=== PATIENT | female | born 1945 | race Caucasian/White ===

== ENCOUNTER → 2021-03-27 12:09 | Outpatient (CLI) | payer MEDICARE, SELFPAY ==
--- NOTE | ~2021-03-27 | DEXA_ITS ---
Bone Density Report Name: Vannessa Stubbs Age: 75 Sex: Female Ethnicity: White Date of : 1945 Indication: postmenopausal; screening for osteoporosis; Referring Provider: Brando Keita Study: Bone densitometry was performed. Exam Date: March 27, 2021 Accession number: [id number] Bone Density: Region BMD T-score Z-score Classification AP Spine (L1-L4) 0.986 -0.6 1.9 Normal Femoral Neck (Left) 0.780 -0.6 1.5 Normal Total Hip (Left) 0.904 -0.3 1.5 Normal Femoral Neck (Right) 0.778 -0.6 1.5 Normal Total Hip (Right) 0.887 -0.5 1.4 Normal Total Hip Mean 0.896 -0.4 1.5 Normal World Health Organization criteria for BMD impression classify patients as: Normal (T-score at or above -1.0), Osteopenia (T-score between -1.0 and -2.5), or Osteoporosis (T-score at or below -2.5). 10-year Fracture Risk: FRAX not reported because: All T-scores for Spine Total, Hip Total, Femoral Neck at or above -1.0 Clinical Information Provided by Patient: Patient maximum height was 58 Menopause Age: 47 No regular weight bearing exercise Onset of menses at age 13 Number of children 2 Impression: The patient has normal bone mass. Discussion: BONE DENSITY IS ABOVE THE MINIMUM DESIRABLE LEVEL AT ALL SKELETAL SITES TESTED. This patient?s bone mineral density is above the minimum desirable level (T-score -1.0 or better) at all sites measured. The patient should follow a healthful lifestyle (good nutrition with adequate calcium and vitamin D, and appropriate weight-bearing exercise). Follow-Up: Consider repeating this study in 5 years or sooner if there is some new clinical indication. Reported by: SUZIE on 03/27/2021 12:37:00 PM. Reviewed, dictated and finalized at location [facility]
--- NOTE | ~2021-03-27 | MM_ITS ---
EXAMINATION: MM screening james BI w juanita HISTORY: Screening TECHNIQUE: Craniocaudal and mediolateral oblique 3-D tomosynthesis images were obtained and synthetic 2-D images were generated. CAD analysis was submitted and interpreted. COMPARISON: Comparison to multiple prior studies sequentially, with oldest reviewed study dated 01/26. BREAST PARENCHYMAL COMPOSITION: There are scattered areas of fibroglandular density. FINDINGS: There is focal asymmetry laterally in the left breast on CC view. The right breast is stabl e without evidence for malignancy. IMPRESSION: 1. New focal left breast asymmetry laterally on CC view. 2. Additional mammographic views and possible breast ultrasound are recommended. BI-RADS Category 0: Incomplete: Needs additional imaging evaluation. Reviewed, dictated and finalized at location A. IMPRESSION: 1. New focal left breast asymmetry laterally on CC view. 2. Additional mammographic views and possible breast ultrasound are recommended . BI-RADS Category 0: Incomplete: Needs additional imaging evaluation.
== END ==
PROVIDERS: PCP Family Medicine; Visit Provider Family Medicine
DX: Z12.31 Encounter for screening mammogram for malignant neoplasm of breast (principal); Z78.0 Asymptomatic menopausal state; R92.8 Other abnormal and inconclusive findings on diagnostic imaging of breast
CPT/HCPCS: 77063; 77067; 77080

== ENCOUNTER → 2021-04-29 14:27 | Outpatient (CLI) | payer MEDICARE, SELFPAY ==
--- NOTE | ~2021-04-29 | MMUS_ITS ---
EXAMINATION: MM diagnostic james LT w juanita, US breast LT limited HISTORY: New focal asymmetry reported in lateral aspect of left breast on 03/27/2021 screening cc view . TECHNIQUE: Additional 3-D tomosynthesis images of the left breast were performed and synthetic 2-D im ages were generated. CAD analysis was submitted and interpreted. High resolution upper outer and lowe r-outer left breast ultrasound was performed. COMPARISON: 03/27/2021 bilateral digital screening mammogram FINDINGS: MAMMOGRAPHIC FINDINGS: No suspicious mass or architectural distortion is evident. There are scattered benign calcifications. ULTRASOUND: Probable benign 3 mm cyst at 5:00 3 cm from nipple. No suspicious mass or shadowing is detected otherwise in the lateral half of the left breast. IMPRESSION: 1. Probable benign 3 mm cyst at 5:00 3 cm from nipple 2. 6 month diagnostic left mammogram and targeted left breast ultrasound follow-up is recommended BI-RADS category 3, probably benign findings. Reviewed, dictated and finalized at location A. IMPRESSION: 1. Probable benign 3 mm cyst at 5:00 3 cm from nipple 2. 6 month diagnostic left mammogram and targeted left breast ultrasound follow -up is recommended BI-RADS category 3, probably benign findings.
== END ==
PROVIDERS: PCP Family Medicine; Visit Provider Family Medicine
DX: R92.8 Other abnormal and inconclusive findings on diagnostic imaging of breast (principal)
CPT/HCPCS: 76642; 77061; 77065; G0279

== ENCOUNTER → 2022-01-06 14:06 | Outpatient (CLI) | payer MEDICARE, SELFPAY ==
--- NOTE | ~2022-01-06 | MM_ITS ---
EXAMINATION: MM diagnostic james LT w juanita HISTORY: Six-month follow-up for probably benign left breast mass TECHNIQUE: Craniocaudal, mediolateral, and mediolateral oblique 3-D tomosynthesis images of the left breast were performed and synthetic 2-D images were generated. CAD analysis was submitted and interpr eted. COMPARISON: 04/29/2021, 03/27/2021,05/23/2019 BREAST PARENCHYMAL COMPOSITION: There are scattered areas of fibroglandular density. FINDINGS: Scattered benign-appearing calcifications are present. There is no evidence of suspicious mass, calcification, or architectural distortion to suggest malignancy. There has been no suspicious interval change. IMPRESSION: 1. No mammographic evidence of malignancy. 2. Patient will return for targeted ultrasound of the sonographically detected left breast mass in qu estion. BI-RADS Category 0: Incomplete: Needs additional imaging evaluation. Reviewed, dictated and finalized at location A. BUSINESS SYSTEMS ANALYST IMPRESSION: 1. No mammographic evidence of malignancy. 2. Patient will return for targeted ultrasound of the sonographically detected left breast mass in question. BI-RADS Category 0: Incomplete: Needs additional imaging evaluation.
== END ==
PROVIDERS: PCP Family Medicine; Visit Provider Physician Assistant
DX: R92.8 Other abnormal and inconclusive findings on diagnostic imaging of breast (principal)
CPT/HCPCS: 77061; 77065; G0279

== ENCOUNTER → 2022-01-07 14:11 | Outpatient (CLI) | payer MEDICARE, SELFPAY ==
--- NOTE | ~2022-01-07 | US_ITS ---
EXAMINATION: US breast LT limited HISTORY: Six-month follow-up for probably benign left breast mass TECHNIQUE: Limited left breast ultrasound was performed. FINDINGS: The previously described sonographically detected left breast mass is no longer identified. No suspicious cystic or solid mass is seen. IMPRESSION: Interval resolution of the previously described left breast mass. Routine screening mammography is re commended. BI-RADS Category 1: Negative Reviewed, dictated and finalized at location A. OTICS AND/OR VICE DETECTIVE IMPRESSION: Interval resolution of the previously described left breast mass. Routine [place] mammography is recommended. BI-RADS Category 1: Negative
== END ==
PROVIDERS: PCP Physician Assistant; Visit Provider Physician Assistant
DX: R92.8 Other abnormal and inconclusive findings on diagnostic imaging of breast (principal)
CPT/HCPCS: 76642

== ENCOUNTER 2022-03-31 15:51 | Emergency (ER) | payer MEDICARE, SELFPAY ==
--- NOTE | ~2022-03-31 | XR_ITS ---
EXAMINATION: XR hand RT min 3V DATE: 03/31/2022 16:39 INDICATION: Cat bite 2 days prior with erythema and swelling posterior to the second and third metaca rpals TECHNIQUE: Posteroanterior, oblique and lateral views of the right hand were obtained. COMPARISON: None. FINDINGS: Widening of the scapholunate interval suggestive of tear of the scapholunate ligament. Severe osteoar thritis with some likely chronic dorsal subluxation at the first carpometacarpal joint with remodelin g of the base of the first metacarpal. Alignment is otherwise normal. No fractures identified. No cor tical erosions or periosteal reaction to suggest osteomyelitis. Additional polyarticular osteoarthrit is, severe at the second and fifth distal interphalangeal joints moderate at the triscaphe joint, rem aining interphalangeal joints and at the third-fifth metacarpophalangeal joints and mild at the first and second metacarpophalangeal, midcarpal and wrist joints. There appears be periarticular soft tiss ue swelling at the second and third metacarpophalangeal joints. No radiopaque foreign bodies. IMPRESSION: 1. 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 No acute osseous abnormality. Reviewed, dictated and finalized at location B. IMPRESSION: 1. 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 No a cute osseous abnormality.
[2022-03-31 15:55] VITALS: BP 151/64; PULSE 84; RESP 16; TEMP 36.9; O2SAT 100
--- NOTE | 2022-03-31 16:14 | ED.ANIMALBIT ---
HPI - Animal Bite General Chief Complaint: Animal Bite Stated Complaint: Animal bite Time Seen by Provider: 03/31/22 16:06 History of Present Illness HPI narrative: 76-year-old female presents to the emergency room complaints cat bite to the right hand. Patient states that she was brushing the cat when cat became agitated and bit her on the right hand. Patient states the bite occurred on Thursday. Patient also reports the area around the bite is becoming more tender and red. Patient denies fever. Patient states the rabies vaccination status of the cat is up-to-date. Related Data Home Medications Medication Instructions Recorded Confirmed acetaminophen 500 mg capsule 1,000 mg PO TID PRN cap 12/26/19 10/24/21 ferrous sulfate 325 mg (65 mg 325 mg PO DAILY 12/26/19 10/24/21 iron) tablet Allergies Allergy/AdvReac Type Severity Reaction Status Date / Time codeine Allergy Unknown Skin Verified 03/31/22 16:17 Reaction Review of Systems Review of Systems: CONSTITUTIONAL: Denies fever, chills, or sweats. EYES: Denies visual changes, redness, or discharge. ENT: Denies rhinorrhea, congestion, sore throat, or otalgia. CARDIOVASCULAR: Denies chest pain, palpitations, or edema. RESPIRATORY: Denies cough or dyspnea. GASTROINTESTINAL: Denies abdominal pain, nausea, vomiting, or diarrhea. GENITOURINARY: Denies dysuria or hematuria. SKIN: 2 puncture wounds to right hand MUSCULOSKELETAL: Denies back pain, joint pain, or myalgia. NEUROLOGIC: Denies headache, numbness, dizziness, or weakness. PSYCHIATRIC: Denies anxiety or depression. PMFSH Surgical History Surgical History History of knee replacement Family History Family History Mother Family history of malignant neoplasm of brain, Onset Age: 70 Father Family history of coronary artery disease, Onset Age: 70 Social History Social History Smoking status: Former smoker Second hand tobacco smoke exposure: No Alcohol intake: never Exam Narrative: GENERAL: Well-appearing, well-nourished, and in no acute distress. HEAD: Normocephalic, atraumatic. EYES: PERRLA and EOMI. ENT: Nares clear, no rhinorrhea or epistaxis. Mucous membranes moist. Oropharynx without tonsillar hypertrophy exudate or other lesions. Bilateral TMs pearly ordoñez nonbulging NECK: Supple. No adenopathy or masses. No carotid bruits or JVD CHEST: Clear to auscultation. No respiratory distress. No wheezes rales or rhonchi HEART: Regular rate and rhythm. No murmur heard. Normal peripheral pulses. ABDOMEN: Soft, nontender, nondistended, normal active bowel sounds. EXTREMITIES: Normal range of motion. No edema. SKIN: Right hand: 2 puncture wounds with surrounding erythema to dorsal surface; no drainage, no streaking, FROM NEURO: No focal deficits. Alert and oriented x3. PSYCH: Normal mood and affect. Course Vital Signs Vital signs: Vital Signs Temperature 36.9 C 03/31/22 15:55 Pulse Rate 84 03/31/22 15:55 Respiratory Rate 16 03/31/22 15:55 Blood Pressure 151/64 H 03/31/22 15:55 Pulse Oximetry 100 03/31/22 15:55 Temperature 36.9 C 03/31/22 15:55 Pulse Rate 84 03/31/22 15:55 Respiratory Rate 16 03/31/22 15:55 Blood Pressure 151/64 H 03/31/22 15:55 Pulse Oximetry 100 03/31/22 15:55 Discharge Plan Discharge Clinical Impression: Bite by animal Patient Disposition: Home, Self-Care Condition: Stable Instructions: Antibiotic Form, Animal Bite (ED) Prescriptions: New amoxicillin-pot clavulanate 875-125 mg tablet 1 tablet PO Q12H 10 Days Qty: 20 RF: 0 No Action ferrous sulfate [Feosol] 325 mg (65 mg iron) tablet 325 mg PO DAILY RF: 0 acetaminophen 500 mg capsule 1,000 mg PO TID PRNRF: 0 pantoprazole 40 mg tablet,delayed release (DR/EC)
[2022-03-31] MEDS: TETANUS,DIPHTHERIA,AC PERTUSSIS ADULT (0.5 ML) BOOSTRIX IM (16:47)
== END 2022-03-31 16:55 | disposition home or self-care (01) ==
PROVIDERS: Emergency Provider Nurse Practitioner Family; PCP Family Medicine
DX: S61.451A Open bite of right hand, initial encounter (principal); Z23 Encounter for immunization; Z96.659 Presence of unspecified artificial knee joint; Z87.891 Personal history of nicotine dependence; W55.01XA Bitten by cat, initial encounter
CPT/HCPCS: 73130; 90471; 90715; 99283

== ENCOUNTER 2023-08-21 13:41 | Emergency (ER) | payer MEDICARE, SELFPAY ==
--- NOTE | ~2023-08-21 | XR_ITS ---
EXAMINATION: XR shoulder LT min 2V DATE: 08/21/2023 15:05 INDICATION: Left shoulder pain. TECHNIQUE: 4 views of left shoulder were obtained. COMPARISON: None. FINDINGS: Bone alignment is normal. No fracture. There is mild osteoarthritis of glenohumeral joint a nd acromioclavicular joint. IMPRESSION: 1. Mild polyarticular osteoarthritis. Reviewed, dictated and finalized at location A.
--- NOTE | 2023-08-21 13:44 | ECG_ITS ---
Measurements Intervals [place] Rate: 91 P: 51 TX: 146 QRS: 37 QRSD: 85 T: 57 QT: 372 QTc: 458 Interpretive Statements SINUS RHYTHM NONSPECIFIC ST & T-WAVE ABNORMALITY ABNORMAL ECG NO PREVIOUS ECG AVAILABLE FOR COMPARISON Electronically Signed On 08-21-2023 14:10:05 CDT by Madhu Barrientos M.D.
[2023-08-21 14:17] VITALS: BP 181/90; PULSE 88; RESP 16; TEMP 37; O2SAT 99
[2023-08-21 18:15] VITALS: BP 168/79; PULSE 88; O2SAT 100
--- NOTE | 2023-08-21 18:29 | ED.UPPEXIN ---
HPI - Extremity Injury (Upper) General Chief Complaint: Extremity Injury, Upper Stated Complaint: left shoulder pain worse with movement Time Seen by Provider: 08/21/23 18:28 Source: patient and family Mode of arrival: ambulatory Limitations: no limitations History of Present Illness HPI narrative: 78 years old white female came to the emergency room with left shoulder pain after lifting a lot of heavy stuff including wheelchair out of the basement to upstairs yesterday. She denies any chest pain or shortness of breath. Worse with any left upper extremity movement, better remaining still. Patient cannot lift left upper extremity above her head. Related Data Home Medications Medication Instructions Recorded Confirmed acetaminophen 500 mg capsule 1,000 mg PO TID PRN Pain 12/26/19 08/21/23 ferrous sulfate 325 mg (65 mg 325 mg PO DAILY 12/26/19 08/21/23 iron) tablet (Feosol) Allergies Allergy/AdvReac Type Severity Reaction Status Date / Time codeine Allergy Unknown Skin Verified 08/21/23 18:19 Reaction Review of Systems Review of Systems: All systems reviewed & are unremarkable except as noted in HPI and below PMFSH Surgical History Surgical History H/O dilation and curettage History of knee replacement History of tonsillectomy Family History Family History Mother Family history of malignant neoplasm of brain, Onset Age: 70 Father Family history of coronary artery disease, Onset Age: 70 Social History Social History Smoking status: Former smoker Second hand tobacco smoke exposure: No Alcohol intake: never Substance use type: does not use Lack of Transportation: No Lack of Food: Never True Current Housing: I Have Housing Concerned About Future Housing: No Difficulty Paying Gas/Electric Bills: No Difficulty Paying for Meds: No Currently Unemployed: No Education: High School Diploma/GED Living arrangements: with family Additional living arrangements comments: Exam Narrative: General appearance: Well-developed, well-nourished Skin: Normal color Head: Normocephalic, nontraumatic Eyes: Clear conjunctiva ENT: Oropharynx normal, ears normal, nose normal Neck: Supple, nontender Chest and respiratory: Airway patent, no respiratory distress, no accessory muscle use Heart: Regular rate/rhythm Abdomen: Soft, nontender, no organomegaly, quiet bowel sounds Vascular: Normal peripheral pulses, normal capillary refill. Musculoskeletal: Diffuse tenderness left shoulder, no bruises, no swelling, no rash, no deformity, severe limited range of motion, patient cannot do abduction more than 75 degree. Neurologic: Alert and oriented ?3, FORM [employer] FORMS is normal as tested, no gross motor deficit Course Vital Signs Vital signs: Vital Signs Temperature 37.0 C 08/21/23 14:17 Pulse Rate 88 08/21/23 14:17 Respiratory Rate 16 08/21/23 14:17 Blood Pressure 181/90 H 08/21/23 14:17 Pulse Oximetry 99 08/21/23 14:17 Oxygen Delivery Room Air 08/21/23 14:17 Temperature 37.0 C 08/21/23 14:17 Pulse Rate 88 08/21/23 18:15 Respiratory Rate 16 08/21/23 14:17 Blood Pressure 168/79 H 08/21/23 18:15 Pulse Oximetry 100 08/21/23 18:15 Oxygen Delivery Room Air 08/21/23 14:17 MDM - Extremity Injury (Upper) MDM Narrative Medical decision making narrative: Patient presents with left shoulder pain after lifting heavy material out of the basement. Physical examination consistent with diffuse tenderness and
[2023-08-21] MEDS: IBUPROFEN 600 MG TABLET PO (19:01)
== END 2023-08-21 19:13 | disposition home or self-care (01) ==
PROVIDERS: Emergency Provider Emergency Medicine; PCP Emergency Medicine
DX: S49.92XA Unspecified injury of left shoulder and upper arm, initial encounter (principal); Z96.659 Presence of unspecified artificial knee joint; Z87.891 Personal history of nicotine dependence; M19.012 Primary osteoarthritis, left shoulder; X50.0XXA Overexertion from strenuous movement or load, initial encounter
CPT/HCPCS: 73030; 93005; 99283; A9270

== ENCOUNTER 2023-10-09 00:03 | Emergency (ER) | payer MEDICARE, SELFPAY ==
--- NOTE | ~2023-10-09 | XR_ITS ---
PA, oblique, and lateral views of the left fourth finger CLINICAL HISTORY: Swelling, pain FINDINGS: No acute fracture or dislocation seen. There are minimal degenerative changes of the fourth DIP joint. Soft tissues are unremarkable. IMPRESSION: No acute abnormality. Minimal degenerative change of the fourth PIP joint. Reviewed, dictated and finalized at [facility]. 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
[2023-10-09 00:09] VITALS: BP 167/83; PULSE 85; RESP 16; TEMP 36.6; O2SAT 100
[2023-10-09] MEDS: ACETAMINOPHEN 500 MG TABLET 1000 MG PO (03:14)
--- NOTE | 2023-10-09 03:14 | ED.EXTPRO ---
HPI - Extremity Problem General Chief complaint: Extremity Problem,Nontraumatic Stated complaint: ring stuck on finger Time Seen by Provider: 10/09/23 02:55 Source: patient Mode of arrival: ambulatory Limitations: no limitations History of Present Illness HPI Narrative: Patient is a 78-year-old female who presents ED with report of pain and swelling to her left 4th digit. Patient reports the pain and swelling began this morning. Denies any known injury. The swelling continued to worsen throughout the day to the point she was unable to take off her wedding band. Patient then prompted here. She denies any numbness or tingling. Related Data Home Medications Medication Instructions Recorded Confirmed acetaminophen 500 mg capsule 1,000 mg PO TID PRN Pain 12/26/19 08/21/23 ferrous sulfate 325 mg (65 mg 325 mg PO DAILY 12/26/19 08/21/23 iron) tablet (Feosol) Allergies Allergy/AdvReac Type Severity Reaction Status Date / Time codeine Allergy Unknown Skin Verified 10/09/23 00:09 Reaction Review of Systems Review of Systems: CONSTITUTIONAL: Denies fever, chills, or sweats. SKIN: See HPI. MUSCULOSKELETAL: See HPI. NEUROLOGIC: Denies tingling, numbness, or weakness. All systems reviewed & are unremarkable except as noted in HPI and below PMFSH Surgical History Surgical History H/O dilation and curettage History of knee replacement History of tonsillectomy Family History Family History Mother Family history of malignant neoplasm of brain, Onset Age: 70 Father Family history of coronary artery disease, Onset Age: 70 Social History Social History Smoking status: Former smoker Second hand tobacco smoke exposure: No Alcohol intake: never Substance use type: does not use Lack of Transportation: No Lack of Food: Never True Current Housing: I Have Housing Concerned About Future Housing: No Difficulty Paying Gas/Electric Bills: No Difficulty Paying for Meds: No Currently Unemployed: No Education: High School Diploma/GED Living arrangements: with family Additional living arrangements comments: Exam Narrative: GENERAL: Well appearing, well-nourished, non-toxic, in no acute distress. RESPIRATORY: Airway patent, respirations nonlabored. CARDIOVASCULAR: Regular rate and rhythm without murmurs, rubs, or gallops. Radial pulses 2+ and equal bilaterally. MUSCULOSKELETAL: Moves all extremities. Mild limited flexion range of motion of left 4th digit due to pain and swelling. Tenderness over proximal finger. Moderate swelling noted to proximal finger with indentation of ring/wedding band that has been cut off. Very small superficial abrasions noted to indentation. Good capillary refill. Distal sensation intact. SKIN: Warm, dry, normal color. No rashes. NEURO: A&O X3. Speech clear. Cranial nerves II-XII grossly intact. Steady gait. No ataxic movements. PSYCHIATRIC: Appropriate mood and affect. Normal interaction. Course Vital Signs Vital signs: Vital Signs Temperature 98 F 10/09/23 00:09 Pulse Rate 85 10/09/23 00:09 Respiratory Rate 16 10/09/23 00:09 Blood Pressure 167/83 H 10/09/23 00:09 Pulse Oximetry 100 10/09/23 00:09 Temperature 98 F 10/09/23 00:09 Pulse Rate 85 10/09/23 00:09 Respiratory Rate 16 10/09/23 00:09 Blood Pressure 167/83 H 10/09/23 00:09 Pulse Oximetry 100 10/09/23 00:09 MDM - Extremity (Nontraumatic) MDM Narrative Medical decision making narrative: Patient presented to ED with pain and swelling to left 4th digit, unable to remove wedding band. Ring was cut off upon arrival to the ED. Moderate swelling still noted to proximal finger at the time of my evaluation. X-ray obtained and interpreted by jenna
[2023-10-09 03:44] VITALS: BP 158/79; PULSE 72; RESP 16; TEMP 36.6; O2SAT 98
== END 2023-10-09 03:45 | disposition home or self-care (01) ==
LOC: ANHED 03:34
PROVIDERS: Emergency Provider Physician Assistant; PCP Emergency Medicine
DX: S60.445A External constriction of left ring finger, initial encounter (principal); Z96.659 Presence of unspecified artificial knee joint; Z87.891 Personal history of nicotine dependence; W49.04XA Ring or other jewelry causing external constriction, initial encounter
CPT/HCPCS: 73140; 99283; A9270

== ENCOUNTER 2023-10-14 15:27 | Emergency (ER) | payer MEDICARE, SELFPAY ==
[2023-10-14 15:48] VITALS: BP 156/64; PULSE 78; RESP 20; TEMP 36.5; O2SAT 100
--- NOTE | 2023-10-14 17:25 | ED.GENADULT ---
HPI - General Adult General Chief complaint: Unspecified Stated complaint: needs ring cut off Time Seen by Provider: 10/14/23 17:25 History of Present Illness HPI narrative: 78-year-old female presenting emergency department for evaluation of a ring on her right ring finger. Patient reports that the ring has become increasingly tight or last few years and she had to have a another ring removed and patient was trying to remove this ring but was unable to. Related Data Home Medications Medication Instructions Recorded Confirmed acetaminophen 500 mg capsule 1,000 mg PO TID PRN Pain 12/26/19 08/21/23 ferrous sulfate 325 mg (65 mg 325 mg PO DAILY 12/26/19 08/21/23 iron) tablet (Feosol) Allergies Allergy/AdvReac Type Severity Reaction Status Date / Time codeine Allergy Unknown Skin Verified 10/09/23 00:09 Reaction Review of Systems Review of Systems: All systems reviewed & are unremarkable except as noted in HPI and below PMFSH Surgical History Surgical History H/O dilation and curettage History of knee replacement History of tonsillectomy Family History Family History Mother Family history of malignant neoplasm of brain, Onset Age: 70 Father Family history of coronary artery disease, Onset Age: 70 Social History Social History Smoking status: Former smoker Second hand tobacco smoke exposure: No Alcohol intake: never Substance use type: does not use Lack of Transportation: No Lack of Food: Never True Current Housing: I Have Housing Concerned About Future Housing: No Difficulty Paying Gas/Electric Bills: No Difficulty Paying for Meds: No Currently Unemployed: No Education: High School Diploma/GED Living arrangements: with family Additional living arrangements comments: Exam Narrative: APPEARANCE: Well appearing, no pain, no distress, well-nourished. HEAD: normocephalic, atraumatic. EYES: PERRLA/EOMI, conjunctivae clear. RESPIRATORY: Airway patent, respirations nonlabored. Clear to auscultation bilaterally, no rales, rhonchi, wheezing. CARDIOVASCULAR: Regular rate and rhythm without murmurs rubs or gallops. ABDOMINAL: Soft, nontender, nondistended, normal bowel sounds MUSCULOSKELETAL: Indent where ring was removed no evidence of injury NEURO: Alert. Cranial nerves II through XII intact. Good gait. Good coordination SKIN: Warm, dry. Normal Color Course Vital Signs Vital signs: Vital Signs Temperature 97.7 F 10/14/23 15:48 Pulse Rate 78 10/14/23 15:48 Respiratory Rate 20 10/14/23 15:48 Blood Pressure 156/64 H 10/14/23 15:48 Pulse Oximetry 100 10/14/23 15:48 Oxygen Delivery Room Air 10/14/23 15:48 Temperature 97.7 F 10/14/23 15:48 Pulse Rate 68 10/14/23 17:34 Respiratory Rate 19 10/14/23 17:34 Blood Pressure 156/64 H 10/14/23 15:48 Pulse Oximetry 100 10/14/23 17:34 Oxygen Delivery Room Air 10/14/23 15:48 Medical Decision Making Vital Signs Vital Signs: Vital Signs Temperature 97.7 F 10/14/23 15:48 Pulse Rate 78 10/14/23 15:48 Respiratory Rate 20 10/14/23 15:48 Blood Pressure 156/64 H 10/14/23 15:48 Pulse Oximetry 100 10/14/23 15:48 Oxygen Delivery Room Air 10/14/23 15:48 Temperature 97.7 F 10/14/23 15:48 Pulse Rate 68 10/14/23 17:34 Respiratory Rate 19 10/14/23 17:34 Blood Pressure 156/64 H 10/14/23 15:48 Pulse Oximetry 100 10/14/23 17:34 Oxygen Delivery Room Air 10/14/23 15:48 Discharge Plan Discharge Clinical Impression: Tight ring on finger Patient Disposition: Home, Self-Care Condition: Stable Instructions: Antibiotic Form Additional Instructions: have close follow-up with your primary care physician. If you have any wors
[2023-10-14 17:34] VITALS: PULSE 68; RESP 19; O2SAT 100
== END 2023-10-14 17:53 | disposition home or self-care (01) ==
LOC: ANHED 17:46
PROVIDERS: Emergency Provider Emergency Medicine; PCP Emergency Medicine
DX: S60.444A External constriction of right ring finger, initial encounter (principal); Z96.659 Presence of unspecified artificial knee joint; Z87.891 Personal history of nicotine dependence; W49.04XA Ring or other jewelry causing external constriction, initial encounter
CPT/HCPCS: 99282

== ENCOUNTER 2024-01-02 15:23 | Emergency (ER) | payer MEDICARE, SELFPAY ==
[2024-01-02 15:28] VITALS: BP 164/79; PULSE 89; RESP 20; TEMP 36.7; O2SAT 100
--- NOTE | 2024-01-02 15:40 | ED.EAR ---
HPI - Ear Problem General Chief complaint: Ear Stated complaint: FB in right ear Time Seen by Provider: 01/02/24 15:40 Source: patient, RN notes reviewed and old records reviewed Mode of arrival: ambulatory Limitations: no limitations History of Present Illness HPI Narrative: 78 year old female who presents to [facility] with complaints of feeling like something is in her right ear. Patient denies any acute pain to her right ear, reports that something that was on cats paws went into her right ear.Patient reports no pain to her ear did try some peroxide to her ear.. Complaint: foreign body Location: right ear Discharge from ear: Reports no Associated symptoms ear: other (feels like something in ear) Treatment prior to arrival: other (peroxide to her ear) Related Data Home Medications Medication Instructions Recorded Confirmed acetaminophen 500 mg capsule 1,000 mg PO TID PRN Pain 12/26/19 08/21/23 ferrous sulfate 325 mg (65 mg 325 mg PO DAILY 12/26/19 08/21/23 iron) tablet (Feosol) Allergies Allergy/AdvReac Type Severity Reaction Status Date / Time codeine Allergy Unknown Skin Verified 10/09/23 00:09 Reaction Review of Systems Review of Systems: CONSTITUTIONAL: Denies fever, chills, or sweats. EYES: Denies visual changes, redness, or discharge. ENT: Denies rhinorrhea, congestion, sore throat, reports foreign body in right ear CARDIOVASCULAR: Denies chest pain, palpitations, or edema. RESPIRATORY: Denies cough or dyspnea. GASTROINTESTINAL: Denies abdominal pain, nausea, vomiting, or diarrhea. GENITOURINARY: Denies dysuria or hematuria. SKIN: Denies rash or itching. MUSCULOSKELETAL: Denies back pain, joint pain, or myalgia. NEUROLOGIC: Denies headache, numbness, or weakness. PSYCHIATRIC: Denies anxiety or depression. All systems reviewed & are unremarkable except as noted in HPI and below PMFSH Past Medical History Medical History Anemia Arthritis Hypertension Surgical History Surgical History H/O dilation and curettage History of knee replacement History of tonsillectomy Family History Family History Mother Family history of malignant neoplasm of brain, Onset Age: 70 Father Family history of coronary artery disease, Onset Age: 70 Social History Social History Smoking status: Former smoker Second hand tobacco smoke exposure: No Alcohol intake: never Substance use type: does not use Lack of Transportation: No Lack of Food: Never True Current Housing: I Have Housing Concerned About Future Housing: No Difficulty Paying Gas/Electric Bills: No Difficulty Paying for Meds: No Currently Unemployed: No Education: High School Diploma/GED Living arrangements: with family Additional living arrangements comments: Comments At time of signature, agree with nursing past medical, surgical, social and family history. There is no relevant family history pertinent to the presenting complaint Exam Narrative: GENERAL: Well-appearing, well-nourished, and in no acute distress. HEAD: Normocephalic, atraumatic. EYES: PERRLA and EOMI. ENT: Nares clear, no rhinorrhea or epistaxis. Mucous membranes moist.black spot noted in right ear see procedure note,Right and Left TM normal with no redness, throat pink with no redness or swelling. NECK: Supple. no lymphadenopathy CHEST: Clear to auscultation. No respiratory distress.SAO2 100% on room air HEART: Regular rate and rhythm. No murmur heard. Normal peripheral pulses. ABDOMEN: Soft, nontender, nondistended, normal active bowel sounds. EXTREMITIES: Normal range of motion. No edema. SKIN: Warm, dry, no rash. NEURO: No focal deficits. Alert and oriented x3 Course Course Emergency
== END 2024-01-02 16:05 | disposition home or self-care (01) ==
PROVIDERS: Emergency Provider Registered Nurse; PCP Emergency Medicine
DX: T16.1XXA Foreign body in right ear, initial encounter (principal); W44.F4XA Insect entering into or through a natural orifice, initial encounter; Z87.891 Personal history of nicotine dependence; M19.90 Unspecified osteoarthritis, unspecified site; I10 Essential (primary) hypertension; D64.9 Anemia, unspecified
CPT/HCPCS: 99212; G0463

== ENCOUNTER 2024-01-11 15:28 | Outpatient (CLI) | payer MEDICARE, SELFPAY ==
[2024-01-11 19:16] LABS: Basophils Absolute Auto 0.1 K/mm3 (0.0-0.1); Basophils Percent Auto 0.6 % (0.2-1.2); Eosinophils Absolute Auto 0.3 K/mm3 (0-0.3); Eosinophils Percent Auto 3.7 % (0-4.4); Hematocrit 42.6 % (37.0-47.0); Immature Granulocyte Absolute 0.03 K/mm3 (0.00-0.031); Immature Granulocyte Percent A 0.4 % (0-0.5); Lymphocytes Absolute Auto 1.53 K/mm3 (0.9-3.2); Lymphocytes Percent Auto 18.9 % (18.3-44.2); Mean Corpuscular HGB Conc 30.5 g/dl (32-36); Mean Corpuscular Hemoglobin 30.4 pg (26-34); Mean Corpuscular Volume 99.8 fl (80-100); Mean Platelet Volume 9.6 fl (7.4-10.4); Monocytes Absolute Auto 0.6 K/mm3 (0.1-0.6); Monocytes Percent Auto 7.9 % (2.6-8.5); Neutrophils Absolute Auto 5.6 K/mm3 (1.3-6.7); Neutrophils Percent Auto 68.5 % (45.5-73.1); Platelet Count Result 249 k/mm3 (150-375); Red Blood Count 4.27 M/mm3 (4.2-5.4); Red Cell Distribution Width 13.6 % (11.5-14.5); White Blood Count 8.1 K/mm3 (4.5-10.0)
[2024-01-11 20:43] LABS: Alanine Aminotransferase 19 U/L (6-35); Alkaline Phosphatase 70 U/L (38-126); Anion Gap 7 mmol/L (8-16); Aspartate Amino Transferase 39 U/L (14-36); Bilirubin,Total 0.4 mg/dL (0.2-1.3); Blood Urea Nitrogen 20 mg/dL (7-17); Calcium 9.4 mg/dL (8.4-10.2); Carbon Dioxide 27 mmol/L (22-30); Chloride 105 mmol/L (98-107); Estimated Glomerular Filt Rate > 60; Glucose 100 mg/dL (65-110); Potassium 4.3 mmol/L (3.4-5.0); Sodium 139 mmol/L (137-145)
== END 2024-01-11 15:29 | disposition home or self-care (01) ==
LOC: ANHGOSHLAB 15:29
PROVIDERS: PCP Emergency Medicine; Visit Provider Emergency Medicine
DX: Z79.899 Other long term (current) drug therapy (principal)
CPT/HCPCS: 36415; 80053; 85025

== ENCOUNTER 2024-01-23 15:34 | Emergency (ER) | payer MEDICARE, SELFPAY ==
--- NOTE | ~2024-01-23 | CT_ITS ---
EXAMINATION: CT abdomen pelvis w con DATE: 01/23/2024 19:00 INDICATION: rectal vs vaginal bleeding, LLQ abd pain TECHNIQUE: Computed tomography (CT) of the abdomen and pelvis was performed with 100 mL Omnipaque-350 intravenous contrast. Automated exposure control and iterative reconstruction technique were employe d. The dose-length product was 725.06 mGy-cm. COMPARISON: 11/17/2014. FINDINGS: Lower thorax: Unremarkable Liver: Nodular liver border. Irregular 2 cm area of hyperenhancement in the left liver lobe near the dome. 2.4 cm hypoenhancing lesion in the inferior left lobe. Biliary/Gallbladder: Cholelithiasis. No bile duct dilation. Pancreas: Mild atrophy Spleen: Normal. Adrenals:No mass. Kidneys: No suspicious mass, obstructing stone, or hydronephrosis 1 cm nonobstructing left inferior p ole calcification. GI tract: No small or large bowel dilation. Colonic wall edema extending from the hepatic flexure to the mid sigmoid colon. Normal appendix. Mesentery/Peritoneum: No ascites, mass, or free air. Retroperitoneum: No mass. Atherosclerotic abdominal aortic and/or arterial calcifications. Pelvis: Dilated left gonadal and periureteral veins as can be seen with pelvic congestion. Mild urina ry bladder wall stranding. Normal uterus and ovaries. Soft Tissues: Soft tissues and body wall unremarkable. Bones: No acute osseous finding. IMPRESSION: Cirrhosis. Hyper and hypoenhancing left liver lobe lesions, recommend nonemergent but timely MRI of the liver wi thout and with contrast for further evaluation. Mild esophagitis/gastritis. Infectious, inflammatory, or ischemic colitis extending from the hepatic flexure to the mid sigmoid. Mild bladder wall inflammation, may reflect cystitis in the appropriate clinical context. Reviewed, dictated and finalized at location K. IMPRESSION: Cirrhosis. Hyper and hypoenhancing left liver lobe lesions, recommend nonemergent but time ly MRI of the liver without and with contrast for further evaluation. Mild esophagitis/gastritis. Infectious, inflammatory, or ischemic colitis extending from the hepatic flexur e to the mid sigmoid. Mild bladder wall inflammation, may reflect cystitis in the appropriate clinica l context.
[2024-01-23 16:28] VITALS: BP 128/73; PULSE 88; RESP 18; TEMP 36.2; O2SAT 100
--- NOTE | 2024-01-23 18:00 | ED.GIBLEED ---
HPI - GI Bleed General Chief complaint: GI Bleed Stated complaint: rectal bleeding Time Seen by Provider: 01/23/24 17:58 Source: patient Mode of arrival: ambulatory Limitations: no limitations History of Present Illness HPI Narrative: Patient is a 78 y/o female who presents to the ED with c/o bleeding. Patient is a poor historian. She reports having what she believes to be vaginal and rectal bleeding over the last 3 days. She is unsure exactly where the bleeding is coming from. States blood is bright red. She has been wearing a diaper. She states the blood occurs with movement and when using the restroom. Reports last bowel movement was 2 days ago. She also believes to have blood in her urine and reports having intermittent pain in her left mid to lower abdomen. Patient states her sister's recommended she come to the ED today. She has not tried contacting her doctor. She denies dysuria, fevers, nausea, vomiting, dizziness, lightheadedness. Patient is not on any blood thinners. Reports noncompliance with her normal home medications. Related Data Home Medications Medication Instructions Recorded Confirmed ferrous sulfate 325 mg (65 mg 325 mg PO DAILY 12/26/19 08/21/23 iron) tablet (Feosol) Allergies Allergy/AdvReac Type Severity Reaction Status Date / Time codeine Allergy Unknown Skin Verified 01/23/24 16:32 Reaction Review of Systems Review of Systems: CONSTITUTIONAL: Denies fever, chills, or sweats. CARDIOVASCULAR: Denies chest pain, palpitations, or edema. RESPIRATORY: Denies cough or dyspnea. GASTROINTESTINAL: See HPI. GENITOURINARY: See HPI. All systems reviewed & are unremarkable except as noted in HPI and below [facility] Past Medical History Medical History Anemia Arthritis Hypertension Surgical History Surgical History H/O dilation and curettage History of knee replacement History of tonsillectomy Family History Family History Mother Family history of malignant neoplasm of brain, Onset Age: 70 Father Family history of coronary artery disease, Onset Age: 70 Social History Social History Smoking status: Former smoker Second hand tobacco smoke exposure: No Alcohol intake: never Substance use type: does not use Lack of Transportation: No Lack of Food: Never True Current Housing: I Have Housing Concerned About Future Housing: No Difficulty Paying Gas/Electric Bills: No Difficulty Paying for Meds: No Currently Unemployed: No Education: High School Diploma/GED Living arrangements: with family Additional living arrangements comments: Exam Narrative: GENERAL: Elderly, obese with BMI of 32.3, non-toxic, in no acute distress. HEAD: Normocephalic, atraumatic. RESPIRATORY: Airway patent, respirations nonlabored. Clear to auscultation bilaterally, no rales, rhonchi, wheezing. CARDIOVASCULAR: Regular rate and rhythm without murmurs, rubs, or gallops. ABDOMINAL: Soft, tenderness in right upper abdomen, left mid and lower abdomen, nondistended. Normoactive BS. RECTAL: Small external hemorrhoid, no evidence of thrombosis. Small amount of pink tinged drainage from rectum, just ever so slightly guaiac positive on Hemoccult card. No significant stool noted. No bright red blood. No evidence of active vaginal bleeding or bleeding elsewhere in her perineum. No surrounding induration/redness/tenderness in perirectal region. MUSCULOSKELETAL: Moves all extremities. No gross deformities. SKIN: Warm, dry, normal color. NEURO: A&O X3. Speech clear. PSYCHIATRIC: Appropriate mood and affect. Normal interaction. Course Vital Signs Vital signs: Vital Signs Temperature 97.2 F L 01/23/24 16:28 Pul
[2024-01-23 18:35] LABS: Basophils Absolute Auto 0.1 K/mm3 (0.0-0.1); Basophils Percent Auto 0.4 % (0.2-1.2); Eosinophils Absolute Auto 0.1 K/mm3 (0-0.3); Eosinophils Percent Auto 0.7 % (0-4.4); Hematocrit 41.1 % (37.0-47.0); Hemoglobin 13.5 g/dL (12.0-15.0); Immature Granulocyte Absolute 0.09 K/mm3 (0.00-0.031); Immature Granulocyte Percent A 0.5 % (0-0.5); Lymphocytes Absolute Auto 2.37 K/mm3 (0.9-3.2); Mean Corpuscular HGB Conc 32.8 g/dl (32-36); Mean Corpuscular Hemoglobin 31.5 pg (26-34); Mean Corpuscular Volume 95.8 fl (80-100); Mean Platelet Volume 9.2 fl (7.4-10.4); Monocytes Absolute Auto 0.9 K/mm3 (0.1-0.6); Monocytes Percent Auto 5.1 % (2.6-8.5); Neutrophils Absolute Auto 13.4 K/mm3 (1.3-6.7); Neutrophils Percent Auto 79.3 % (45.5-73.1); Platelet Count Result 220 k/mm3 (150-375); Red Blood Count 4.29 M/mm3 (4.2-5.4); Red Cell Distribution Width 13.8 % (11.5-14.5); White Blood Count 16.9 K/mm3 (4.5-10.0)
[2024-01-23 18:41] LABS: Alanine Aminotransferase 26 U/L (6-35); Albumin Level 4.1 g/dL (3.5-5.1); Alkaline Phosphatase 91 U/L (38-126); Anion Gap 5 mmol/L (8-16); Aspartate Amino Transferase 39 U/L (14-36); Bilirubin,Total 0.9 mg/dL (0.2-1.3); Blood Urea Nitrogen 25 mg/dL (7-17); Calcium 9.2 mg/dL (8.4-10.2); Carbon Dioxide 29 mmol/L (22-30); Chloride 105 mmol/L (98-107); Estimated CRCL calculation 52 ml/min; Estimated Glomerular Filt Rate > 60; Glucose 103 mg/dL (65-110); Lactic Acid Reflex 1.8 mmol/L (0.7-2.0); Lipase 74 U/L (23-300); Potassium 3.7 mmol/L (3.4-5.0); Sodium 139 mmol/L (137-145)
[2024-01-23 18:43] LABS: INR 1.1; Prothrombin Time 14.6 Seconds (11.1-14.7)
[2024-01-23 18:44] LABS: Partial Thromboplastin Time 33.6 Seconds (22.3-36.8)
[2024-01-23] MEDS: SODIUM CHLORIDE 0.9% IV 1,000 ML 999 ML IV CONT (19:00)
[2024-01-23 19:40] VITALS: BP 143/73; PULSE 87; RESP 18; O2SAT 97
[2024-01-23 20:18] LABS: Appearance Urine Cloudy (Clear); Bacteria Urine None Seen /hpf; Bilirubin Urine Negative (Negative); Blood Urine 1+ (Negative); Color Urine Yellow (Yellow); Glucose Urine UA Negative (Negative); Ketones Urine Negative (Negative); Leukocyte Esterase Ur Negative LEU/UL (Negative); Nitrate Urine Negative (Negative); Non Pathogenic Casts 0-2; Protein Urine Trace mg/dL (Negative); RBC Urine 0-2 /hpf (0-2); Squamous Epithelial Cell Urine None Seen /hpf (Few); Urobilinogen Urine 0.2 mg/dL (<2.0); WBC Urine 0-5 /hpf (0-3); pH Urine 5.5 (5.0-9.0)
[2024-01-23 20:27] LABS: Add Urine Microscopic? YES
[2024-01-23] MEDS: PIPERACILLN/TAZ 3.375GM/NS50ML 3.375 GM/50 ML BAG IVPB (20:30)
[2024-01-23 21:07] VITALS: BP 116/54; PULSE 84; RESP 18; O2SAT 100
[2024-01-23 22:57] VITALS: BP 132/67; PULSE 88; RESP 18; O2SAT 97
== END 2024-01-23 23:03 | disposition home or self-care (01) ==
PROVIDERS: Emergency Provider Physician Assistant; PCP Emergency Medicine
DX: K52.9 Noninfective gastroenteritis and colitis, unspecified (principal); K76.9 Liver disease, unspecified; K62.5 Hemorrhage of anus and rectum; I10 Essential (primary) hypertension; M19.90 Unspecified osteoarthritis, unspecified site; Z96.659 Presence of unspecified artificial knee joint; Z87.891 Personal history of nicotine dependence; K74.60 Unspecified cirrhosis of liver; R93.41 Abnormal radiologic findings on diagnostic imaging of renal pelvis, ureter, or bladder
CPT/HCPCS: 36415; 74177; 80053; 83605; 83690; 85025; 85610; 85730; 86850; 86900; 86901; 87040; 96361; 96365; 99284; J2543; J7030; Q9967

== ENCOUNTER 2024-02-15 16:22 | Outpatient (CLI) | payer MEDICARE, SELFPAY ==
--- NOTE | ~2024-02-15 | XR_ITS ---
EXAMINATION: XR finger 2nd RT min 2V DATE: 02/15/2024 16:34 INDICATION: Ulceration of right hand second digit. TECHNIQUE: 4 views of right hand second digit were obtained. COMPARISON: None. FINDINGS: There is flexion of second distal interphalangeal joint. No fracture. There is severe osteo arthritis of second distal interphalangeal joint. There are erosions of head of second proximal phala nx not involving the articular surface. There are small periarticular calcifications at second metaca rpophalangeal joint. IMPRESSION: 1. 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 2. Erosions of head of second proximal phalanx. The differential diagnosis includes osteomyelitis and inflammatory arthropathy such as gout. Reviewed, dictated and finalized at location A. IMPRESSION: 1. 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 2. Erosions of head of second proximal phalanx. The differential diagnosis incl udes osteomyelitis and inflammatory arthropathy such as gout.
== END 2024-02-15 16:23 ==
PROVIDERS: PCP Emergency Medicine; Visit Provider Emergency Medicine
DX: L98.499 Non-pressure chronic ulcer of skin of other sites with unspecified severity (principal); M19.041 Primary osteoarthritis, right hand
CPT/HCPCS: 73140

== ENCOUNTER 2024-02-29 15:38 | Outpatient (CLI) | payer MEDICARE, SELFPAY ==
--- NOTE | ~2024-02-29 | MR_ITS ---
EXAMINATION: MR hand RT wo/w con DATE: 02/29/2024 17:09 INDICATION: Osteomyelitis TECHNIQUE: Magnetic resonance imaging (MRI) of the right hand was performed without intravenous contr ast which includes the digits and distal metacarpals but excludes the proximal metacarpals and carpus . Sequences included axial, sagittal and coronal T1-weighted FSE and T2-weighted FS FSE, axial T1-meet ghted FS FSE and postcontrast axial, sagittal and coronal T1-weighted FS FSE. COMPARISON: Radiographs dated 02/15/2024 FINDINGS: Likely mallet finger deformity of the second digit with persistent flexion at the second distal inter phalangeal joints no fracture. Polyarticular osteoarthritis severe with erosive change at the second distal interphalangeal joint and moderate severity at the remaining interphalangeal joints and at the second-fifth metacarpophalangeal joints. There is normal marrow signal throughout with no evident os pearl myelitis or other pathologic marrow replacing process. No enhancing erosions. Physiologic amount fluid in the joint spaces and along the tendon sheath. No abscess or other abnormal fluid collection s. Visualized flexor and extensor tendons are unremarkable. IMPRESSION: 1. Moderate to severe polyarticular osteoarthritis at the metacarpophalangeal and interphalangeal cydney nts of the right hand. No osteomyelitis or acute erosions. Reviewed, dictated and finalized at location A. IMPRESSION: 1. Moderate to severe polyarticular osteoarthritis at the metacarpophalangeal a nd interphalangeal joints of the right hand. No osteomyelitis or acute erosions .
== END 2024-02-29 15:39 | disposition home or self-care (01) ==
PROVIDERS: PCP Emergency Medicine; Visit Provider Emergency Medicine
DX: M19.041 Primary osteoarthritis, right hand (principal)
CPT/HCPCS: 73220; A9577

== ENCOUNTER 2024-05-01 15:37 | Emergency (ER) | payer MEDICARE, SELFPAY ==
[2024-05-01 15:48] VITALS: BP 153/65; PULSE 81; RESP 16; TEMP 36.7; O2SAT 98
--- NOTE | 2024-05-01 15:51 | ED.EAR ---
HPI - Ear Problem General Chief complaint: Ear Stated complaint: Ear Problem/Dizziness History of Present Illness HPI Narrative: Patient presents today with complaint of left ear pressure and fullness. Patient states she washed her hair a couple days ago and got water in her ear and she tried to flush her ear with water and feels as if there is no water in her ear. Related Data Allergies Allergy/AdvReac Type Severity Reaction Status Date / Time codeine Allergy Unknown Skin Verified 02/15/24 15:30 Reaction Review of Systems Review of Systems: CONSTITUTIONAL: Denies chills, or sweats. Reports fever and generalized body aches EYES: Denies visual changes, redness, or discharge. ENT: Denies otalgia. Reports nasal congestion runny nose and sore throat CARDIOVASCULAR: Denies chest pain, palpitations, or edema. RESPIRATORY: Denies dyspnea. Reports occasional cough GASTROINTESTINAL: Denies abdominal pain, nausea, vomiting, or diarrhea. GENITOURINARY: Denies dysuria or hematuria. SKIN: Denies rash or itching. MUSCULOSKELETAL: Denies back pain, joint pain, or myalgia. Reports generalized body aches NEUROLOGIC: Denies headache, numbness, or weakness. PSYCHIATRIC: Denies anxiety or depression. [facility], [facility] Past Medical History Medical History Anemia Arthritis Hypertension Surgical History Surgical History H/O dilation and curettage History of knee replacement History of tonsillectomy Family History Family History Mother Family history of malignant neoplasm of brain, Onset Age: 70 Father Family history of coronary artery disease, Onset Age: 70 Social History Social History Smoking status: Former smoker Second hand tobacco smoke exposure: No Alcohol intake: never Substance use type: does not use Lack of Transportation: No Lack of Food: Never True Current Housing: I Have Housing Concerned About Future Housing: No Difficulty Paying Gas/Electric Bills: No Difficulty Paying for Meds: No Currently Unemployed: No Education: High School Diploma/GED Living arrangements: with family Additional living arrangements comments: Comments At time of signature, agree with nursing past medical, surgical, social and family history. There is no relevant family history pertinent to the presenting complaint Exam Narrative: The patient is a well-developed, well-nourished in no acute distress. SKIN: Skin is warm and dry without erythema, swelling or exudate. There is good turgor. No tenting. HEAD: Atraumatic. Normocephalic. No temporal or scalp tenderness. EYES: Moist and bright. Sclera and conjunctivae normal. No discharge. PERRLA. Extraocular motions intact. Gross visual acuity intact. EARS: Pinna is normal shape and contour. Clear external auditory canals. TM pearly wilkinson with good cone of light, no erythema or suppuration. Bilateral cerumen noted no gross hearing deficit. NOSE: pink, moist mucosa with good air movement. Clear rhinorrhea without nasal flaring. Septum midline. Mouth: moist mucous membranes. THROAT; mild erythema noted to posterior oropharynx with moderate postnasal drainage. Without exudate or ulceration.. Uvula midline. Normal movement of soft palate. NECK: Supple and nontender with full range of motion without discomfort. No meningeal signs. LUNGS: Equal and bilateral breath sounds without wheezes, rales or rhonchi. CHEST: The chest wall is without retractions or use of accessory muscles. HEART: Has a regular rate and rhythm without murmur, gallops, click or rub. ABDOMEN: Soft, nontender with positive active bowel sounds. No rebound tenderness. EXTREMITIES: Without cyanosis, clubbing or edema. Equal 2+ distal pulses and 2 second capillary refill noted
== END 2024-05-01 16:00 | disposition home or self-care (01) ==
PROVIDERS: Emergency Provider Nurse Practitioner Family; PCP Emergency Medicine
DX: H60.92 Unspecified otitis externa, left ear (principal); Z87.891 Personal history of nicotine dependence; M19.90 Unspecified osteoarthritis, unspecified site; I10 Essential (primary) hypertension
CPT/HCPCS: 99213; G0463

== ENCOUNTER 2024-07-27 15:13 | Outpatient (CLI) | payer MEDICARE, SELFPAY ==
[2024-07-27 18:51] LABS: Basophils Absolute Auto 0.1 K/mm3 (0.0-0.1); Basophils Percent Auto 0.8 % (0.2-1.2); Eosinophils Absolute Auto 0.2 K/mm3 (0-0.3); Eosinophils Percent Auto 1.9 % (0-4.4); Hematocrit 37.4 % (37.0-47.0); Hemoglobin 12.4 g/dL (12.0-15.0); Immature Granulocyte Absolute 0.04 K/mm3 (0.00-0.031); Immature Granulocyte Percent A 0.5 % (0-0.5); Lymphocytes Absolute Auto 1.43 K/mm3 (0.9-3.2); Lymphocytes Percent Auto 17.3 % (18.3-44.2); Mean Corpuscular HGB Conc 33.2 g/dl (32-36); Mean Corpuscular Hemoglobin 30.3 pg (26-34); Mean Corpuscular Volume 91.4 fl (80-100); Mean Platelet Volume 10.9 fl (7.4-10.4); Monocytes Absolute Auto 0.7 K/mm3 (0.1-0.6); Neutrophils Absolute Auto 5.9 K/mm3 (1.3-6.7); Neutrophils Percent Auto 71.5 % (45.5-73.1); Platelet Count Result 270 k/mm3 (150-375); Red Blood Count 4.09 M/mm3 (4.2-5.4); Red Cell Distribution Width 22.6 % (11.5-14.5); White Blood Count 8.3 K/mm3 (4.5-10.0)
[2024-07-27 19:23] LABS: Hypochromasia 1+; Platelet Estimate Adequate (Adequate)
[2024-07-27 19:24] LABS: Schistocytes None Seen; Target Cells 1+
[2024-07-27 20:03] LABS: Alanine Aminotransferase 64 U/L (6-35); Albumin Level 4.1 g/dL (3.5-5.1); Alkaline Phosphatase 300 U/L (38-126); Anion Gap 13 mmol/L (4-12); Aspartate Amino Transferase 121 U/L (14-36); Bilirubin Direct 6.9 mg/dL (0-0.3); Bilirubin,Total 14.7 mg/dL (0.2-1.3); Blood Urea Nitrogen 14 mg/dL (7-17); Calcium 9.4 mg/dL (8.4-10.2); Carbon Dioxide 25 mmol/L (22-30); Chloride 99 mmol/L (98-107); Estimated Glomerular Filt Rate > 60; Glucose 126 mg/dL (65-110); Potassium 3.5 mmol/L (3.4-5.0); Sodium 137 mmol/L (137-145)
[2024-07-27 20:05] LABS: Hepatitis B Surface Antigen Negative (Negative)
[2024-07-27 20:10] LABS: HAV RESULT Negative (Negative); Hepatitis B Core IgM Result Negative (Negative)
[2024-07-27 20:23] LABS: Hepatitis C Virus Antibody Reactive (Negative)
[2024-07-29 15:43] LABS: Hepatitis C RNA, Quant PCR <15 NOT DETECTED IU/mL (NOT DETECTED)
== END 2024-07-27 15:14 | disposition home or self-care (01) ==
LOC: ANHGOSHLAB 15:15
PROVIDERS: PCP Emergency Medicine; Visit Provider Emergency Medicine
DX: K83.1 Obstruction of bile duct (principal); B18.2 Chronic viral hepatitis C; E03.9 Hypothyroidism, unspecified
CPT/HCPCS: 36415; 80048; 80074; 80076; 84443; 85025; 87522

== ENCOUNTER 2024-07-27 15:35 | Outpatient (CLI) | payer MEDICARE, SELFPAY ==
--- NOTE | ~2024-07-27 | US_ITS ---
EXAMINATION: US abdomen complete DATE: 07/27/2024 15:57 INDICATION: Obstruction of bile ducts. TECHNIQUE: Multiple grayscale and Doppler ultrasound images of the abdomen were obtained. COMPARISON: CT abdomen and pelvis 01/23/2024 FINDINGS: The pancreas is obscured by bowel gas. The liver demonstrates surface nodularity, consisten t with cirrhosis. There is normal flow in main portal vein. The gallbladder is distended and contains gallstones. No gallbladder wall thickening or sonographic Steiner sign. The common duct is normal and measures 8 mm. Abdominal aorta is normal in caliber. Inferior vena cava is normal. The spleen is nor mal in size. Right kidney measures 8.0 x 3.1 x 3.9 cm. Left kidney measures 8.2 x 3.6 x 4.1 cm. IMPRESSION: 1. Cholelithiasis. Gallbladder distention may be secondary to fasting. 2. Cirrhosis of the liver. 3. Mild atrophy of the kidneys. Given that this finding is new from 01/23/2024, the kidney sizes may b e underestimated. Reviewed, dictated and finalized at location A. IMPRESSION: 1. Cholelithiasis. Gallbladder distention may be secondary to fasting. 2. Cirrhosis of the liver. 3. Mild atrophy of the kidneys. Given that this finding is new from 01/23/2024, the kidney sizes may be underestimated.
== END 2024-07-27 15:36 | disposition home or self-care (01) ==
LOC: GOSHIMG 15:35
PROVIDERS: PCP Emergency Medicine; Visit Provider Emergency Medicine
DX: K80.20 Calculus of gallbladder without cholecystitis without obstruction (principal); K82.8 Other specified diseases of gallbladder; K74.60 Unspecified cirrhosis of liver; N26.1 Atrophy of kidney (terminal)
CPT/HCPCS: 76700